=== PATIENT | female | born 1945 | race Caucasian/White ===

== ENCOUNTER 2023-07-27 10:47 | Outpatient (AMB) | payer MEDICARE, SELFPAY ==
--- NOTE | 2023-07-27 11:28 | AM.OFFWIN_ITS ---
Intake Vital Signs 07/27/23 11:36 Weight 184 lb BP 120/58 L Blood Pressure Location Lt brachial Position Sitting Pulse 71 Pulse Source Pulse Oximeter Temp 97.8 F Temp Source Temporal Artery Scan Pulse Oximetry (%) 96 Oxygen Delivery Method Room Air Intake Visit Reasons: [employer] RT Ear pain [phone] Intake Note: pt is here today for rt ear pain started 2 days Patient Tobacco Use Status: Never used Tobacco Allergies Epi Allergy (Unknown, Uncoded 07/27/23 11:30) Unknown Medication List - Last Reconciled 07/27/23 by Mary Ruby NP acetaminophen 1,000 mg (2 x 500 mg) PO Q6H PRN ciprofloxacin-dexamethasone 0.3-0.1 % 4 drps otic (ear) right BID 7 days nadolol 20 mg PO BID Do you need a note to return to daycare/school/sports/work: No HPI HPI Comments History of Present Illness Details 78 y/o female presents to walk in clinic with c/o right ear pain x 2 days. PFSH Social History Patient Tobacco Use Status: Never used Tobacco Review of Systems Const All systems reviewed & are unremarkable except as noted in HPI and below Physical Exam Vital Signs: Last Vital Signs Temp 97.8 F 07/27/23 11:36 Pulse 71 07/27/23 11:36 BP 120/58 L 07/27/23 11:36 Pulse Ox 96 07/27/23 11:36 Oxygen Delivery Method Room Air 07/27/23 11:36 Const General: comfortable and no acute distress HEENT Head: Yes normocephalic Ears: external ears normal and TM abnormal erythematous, with fluid behind the TM and obstructed by cerumen on the left; not perforated General nose exam: Normal nasal mucous membranes and turbinates present Face and sinus: Yes sinuses nontender Assessment & Plan Assessment & Plan (1) Otalgia, unspecified: Code(s): H92.09 - Otalgia, unspecified ear Qualifiers: Laterality: right Qualified Code(s): H92.01 - Otalgia, right ear Plan: - Abx x 7 days - Acetaminophen for pain relief Plan - Abx x 7 days - Acetaminophen for p Medications: New ciprofloxacin-dexamethasone 0.3-0.1 % 4 drps otic (ear) right BID 7.5 mL 0RF ear pain 7 days H92.01 - Otalgia, right ear acetaminophen 1,000 mg (2 x 500 mg) PO Q6H PRN 30 caps 0RF fever R51.9 - Headache, unspecified Coding Level of Care Code Est Pt Level 2 (14064) Diagnoses Right ear pain H92.01 Laterality: right Time Spent (min) 10
[2023-07-27 11:36] VITALS: BP 120/58; PULSE 71; TEMP 36.6; O2SAT 96
== END 2023-07-27 12:08 | disposition home or self-care (01) ==
PROVIDERS: PCP Internal Medicine; Visit Provider Nurse Practitioner Family
DX: H92.01 Otalgia, right ear (principal)
CPT/HCPCS: 99213